=== PATIENT | female | born 1940 | race Two or more races ===

== ENCOUNTER 2020-08-27 12:23 | Inpatient (IN) | payer MEDICARE, OTHER ==
[~2020-08-27] VITALS: Ht 162.6 cm; Wt 75.9 kg
[2020-08-27 18:07] LABS: Basophils # (auto) 0 10 ^3/uL (0-0.2); Basophils % (auto) 0.4 % (0.0-2.0); Eosinophils # (auto) 0.1 10 ^3/uL (0-0.8); Eosinophils % (auto) 0.6 % (0.0-7.0); Hematocrit 42.1 % (36.0-46.0); Hemoglobin 14.6 g/dL (12.2-16.2); Lymphocytes # (auto) 1.5 10 ^3/uL (0.4-5.4); Lymphocytes % (auto) 14.9 % (10.0-50.0); Mean Corpuscular Hemoglobin 32.6 pg (28.0-32.0); Mean Corpuscular Hgb Conc. 34.7 g/dL (32.0-36.0); Mean Corpuscular Volume 93.9 fL (80.0-100.0); Monocytes # (auto) 1.5 10 ^3/uL (0-1.3); Monocytes % (auto) 14.5 % (0.0-12.0); Neutrophils % (auto) 69.6 % (37.0-80.0); Nucleated Red Blood Cells % 0.1 %; Red Blood Cells 4.48 10^6/uL (4.0-5.20); Red Cell Distribution Width 14.3 % (11.8-14.3)
[2020-08-27 18:23] LABS: INR 1.04 (0.9-1.15); Partial Thromboplastin Time 28.4 sec (23.0-31.2)
[2020-08-27 18:25] LABS: Albumin 3.4 g/dL (3.4-5.0); Anion Gap 9 (5-15); Blood Urea Nitrogen 14 mg/dL (7-18); Calcium 8.9 mg/dL (8.5-10.1); Carbon Dioxide 22 mmol/L (21-32); Chloride 101 mmol/L (98-107); Glucose 98 mg/dL (74-106); Lipase 46 U/L (73-393); Magnesium 1.8 mg/dL (1.6-2.6); Potassium 4.2 mmol/L (3.5-5.1); Sodium 132 mmol/L (136-145)
[2020-08-27 18:31] LABS: Alanine Aminotransferase 22 U/L (13-56); Alkaline Phosphatase 76 U/L (45-117); Aspartate Aminotransferase 22 U/L (15-37); BUN/Creatinine Ratio 18.9; Bilirubin, Total 1.1 mg/dL (0.2-1.0); GFR African American 97 mL/min; GFR Non-African American 80 mL/min
[2020-08-27] MEDS ORDERED: HYDROcodone-ACET 10/325MG TAB PO ONE (21:15)
[2020-08-27] MEDS ORDERED: ACETAMINOPHEN 325 MG TAB PO PRN (22:45)
[2020-08-27] MEDS ORDERED: ONDANSETRON HCL 4 MG/2 ML VIAL IV PRN (22:45)
[2020-08-27] MEDS ORDERED: NITROGLYCERIN 0.4 MG SL TAB SL PRN (22:45)
[2020-08-27] MEDS ORDERED: DOCUSATE SOD 100 MG CAP PO PRN (22:45)
[2020-08-27] MEDS ORDERED: MORPHINE SULFATE INJECTION 2 MG/ML SYRG IV PRN (22:45)
[2020-08-27 23:47] LABS: Urine Bacteria FEW /hpf (None Seen); Urine Blood Negative /uL (Negative); Urine Mucus FEW (None Seen); Urine Specific Gravity 1.016 (1.001-1.035); Urine WBC 1 /hpf (0 - 5)
[2020-08-28] VITALS (7 sets, daily range): BP systolic 112–139; BP diastolic 60–73
[2020-08-28 06:20] LABS: Basophils # (auto) 0 10 ^3/uL (0-0.2); Basophils % (auto) 0.4 % (0.0-2.0); Eosinophils # (auto) 0.1 10 ^3/uL (0-0.8); Eosinophils % (auto) 1.5 % (0.0-7.0); Hemoglobin 12.9 g/dL (12.2-16.2); Mean Corpuscular Hemoglobin 32.3 pg (28.0-32.0); Mean Corpuscular Hgb Conc. 34.7 g/dL (32.0-36.0); Neutrophils % (auto) 63.3 % (37.0-80.0); Red Blood Cells 3.98 10^6/uL (4.0-5.20); White Blood Cell 9.5 10^3/uL (4.4-10.8)
[2020-08-28 06:35] LABS: Albumin 2.9 g/dL (3.4-5.0); Potassium 3.7 mmol/L (3.5-5.1)
[2020-08-28] MEDS: SODIUM CHLORIDE 0.9% 1,000 ML IV SCH ×3 (06:38→17:44)
[2020-08-28 06:51] LABS: BUN/Creatinine Ratio 22.1; Bilirubin, Total 0.9 mg/dL (0.2-1.0); Calcium 8.6 mg/dL (8.5-10.1); Total Protein 6.2 g/dL (6.4-8.2)
[2020-08-28 07:05] LABS: Lymphocytes # (auto) 1.7 10 ^3/uL (0.4-5.4); Lymphocytes % (auto) 18.5 % (10.0-50.0); Monocytes # (auto) 1.6 10 ^3/uL (0-1.3); Monocytes % (auto) 16.3 % (0.0-12.0)
[2020-08-28] MEDS: ENOXAPARIN SOD 40 MG/0.4 ML SYRINGE SC SCH (10:04)
[2020-08-28] MEDS: ASCORBIC ACID 500 MG TAB PO SCH ×2 (10:04→22:04)
[2020-08-28] MEDS: FAMOTIDINE 20 MG TAB PO SCH ×2 (10:04→22:04)
[2020-08-28] MEDS: HYDROcodone-ACET 5/325MG TAB PO PRN ×2 (10:05→18:54)
[2020-08-28] MEDS: ZINC SULFATE 220mg CAP or TAB PO SCH (10:05)
[2020-08-28] MEDS: MULTIPLE VITAMIN TAB PO SCH (10:06)
[2020-08-28] MEDS: MORPHINE SULFATE 4 MG/ML SYR/VIAL IV PRN (23:44)
[2020-08-29] MEDS: MORPHINE SULFATE 4 MG/ML SYR/VIAL IV PRN ×2 (04:10→10:08)
[2020-08-29 05:00] VITALS: BP 118/73
[2020-08-29] MEDS ORDERED: HYDR-4902 PO (05:14)
[2020-08-29 05:39] LABS: Basophils # (auto) 0 10 ^3/uL (0-0.2); Basophils % (auto) 0.5 % (0.0-2.0); Eosinophils # (auto) 0.2 10 ^3/uL (0-0.8); Eosinophils % (auto) 2.3 % (0.0-7.0); Hematocrit 33.9 % (36.0-46.0); Hemoglobin 11.7 g/dL (12.2-16.2); Lymphocytes # (auto) 1.6 10 ^3/uL (0.4-5.4); Lymphocytes % (auto) 19.5 % (10.0-50.0); Mean Corpuscular Hemoglobin 32.6 pg (28.0-32.0); Mean Corpuscular Hgb Conc. 34.7 g/dL (32.0-36.0); Mean Corpuscular Volume 94.1 fL (80.0-100.0); Monocytes # (auto) 1.3 10 ^3/uL (0-1.3); Monocytes % (auto) 15.9 % (0.0-12.0); Neutrophils # (auto) 5.1 10 ^3/uL (1.6-8.6); Neutrophils % (auto) 61.8 % (37.0-80.0); Red Cell Distribution Width 13.8 % (11.8-14.3); White Blood Cell 8.3 10^3/uL (4.4-10.8)
[2020-08-29] MEDS: SODIUM CHLORIDE 0.9% 1,000 ML IV SCH (05:46)
[2020-08-29 06:09] LABS: Potassium 3.7 mmol/L (3.5-5.1)
[2020-08-29 06:55] LABS: BUN/Creatinine Ratio 28.8; Calcium 8.1 mg/dL (8.5-10.1); Magnesium 1.9 mg/dL (1.6-2.6)
[2020-08-29 09:00] VITALS: BP 136/59
[2020-08-29] MEDS: ASCORBIC ACID 500 MG TAB PO SCH ×2 (10:00→21:22)
[2020-08-29] MEDS: ENOXAPARIN SOD 40 MG/0.4 ML SYRINGE SC SCH (10:00)
[2020-08-29] MEDS: FAMOTIDINE 20 MG TAB PO SCH ×2 (10:00→21:22)
[2020-08-29] MEDS: ZINC SULFATE 220mg CAP or TAB PO SCH (10:00)
[2020-08-29] MEDS: MULTIPLE VITAMIN TAB PO SCH (10:00)
[2020-08-29 12:55] VITALS: BP 157/69
[2020-08-29 17:16] VITALS: BP 130/70
[2020-08-29] MEDS ORDERED: ALBUTEROL SULF 2.5 MG/0.5ML(0.5%) NEB SOLN NEB PRN (19:00)
[2020-08-29] MEDS ORDERED: IPRATROPIUM BROM 0.5 MG/2.5ML INH SOL NEB PRN (19:00)
[2020-08-29] MEDS: ALBUTEROL SULF 2.5 MG/0.5ML(0.5%) NEB SOLN NEB SCH ×2 (19:26→22:18)
[2020-08-29] MEDS: IPRATROPIUM BROM 0.5 MG/2.5ML INH SOL NEB SCH ×2 (19:26→22:18)
[2020-08-29 19:34] VITALS: BP 130/70
[2020-08-29] MEDS: HYDROcodone-ACET 5/325MG TAB PO PRN (21:23)
[2020-08-29] MEDS: GABAPENTIN 300 MG CAP PO SCH (21:54)
[2020-08-29 22:00] VITALS: BP 142/57
[2020-08-29 22:23] LABS: Folate (Folic Acid) > 24.00 ng/mL (5.38-24)
[2020-08-30] MEDS: SODIUM CHLORIDE 0.9% 1,000 ML IV SCH (04:34)
[2020-08-30 05:16] VITALS: BP 115/61
[2020-08-30] MEDS: IPRATROPIUM BROM 0.5 MG/2.5ML INH SOL NEB SCH ×6 (07:11→23:10)
[2020-08-30] MEDS: ALBUTEROL SULF 2.5 MG/0.5ML(0.5%) NEB SOLN NEB SCH ×6 (07:12→23:10)
[2020-08-30 09:00] VITALS: BP 123/64
[2020-08-30] MEDS: MULTIPLE VITAMIN TAB PO SCH (09:10)
[2020-08-30] MEDS: GABAPENTIN 300 MG CAP PO SCH ×2 (09:10→21:39)
[2020-08-30] MEDS: FAMOTIDINE 20 MG TAB PO SCH (09:10)
[2020-08-30] MEDS: ZINC SULFATE 220mg CAP or TAB PO SCH (09:10)
[2020-08-30] MEDS: ASCORBIC ACID 500 MG TAB PO SCH ×2 (09:10→21:39)
[2020-08-30] MEDS: ENOXAPARIN SOD 40 MG/0.4 ML SYRINGE SC SCH (09:11)
[2020-08-30] MEDS: MORPHINE SULFATE 4 MG/ML SYR/VIAL IV PRN (09:27)
[2020-08-30 09:38] LABS: Basophils # (auto) 0 10 ^3/uL (0-0.2); Basophils % (auto) 0.4 % (0.0-2.0); Eosinophils # (auto) 0.1 10 ^3/uL (0-0.8); Eosinophils % (auto) 1.2 % (0.0-7.0); Hemoglobin 11.1 g/dL (12.2-16.2); Lymphocytes # (auto) 1.1 10 ^3/uL (0.4-5.4); Lymphocytes % (auto) 14.7 % (10.0-50.0); Mean Corpuscular Hemoglobin 32.6 pg (28.0-32.0); Mean Corpuscular Hgb Conc. 34.8 g/dL (32.0-36.0); Mean Corpuscular Volume 93.6 fL (80.0-100.0); Monocytes # (auto) 1.3 10 ^3/uL (0-1.3); Monocytes % (auto) 16.9 % (0.0-12.0); Neutrophils % (auto) 66.8 % (37.0-80.0); Red Blood Cells 3.42 10^6/uL (4.0-5.20); Red Cell Distribution Width 13.6 % (11.8-14.3); White Blood Cell 7.5 10^3/uL (4.4-10.8)
[2020-08-30 09:57] LABS: BUN/Creatinine Ratio 31.3; Calcium 8.3 mg/dL (8.5-10.1); Magnesium 1.9 mg/dL (1.6-2.6); Potassium 4.2 mmol/L (3.5-5.1)
[2020-08-30] MEDS ORDERED: ceFAZolin 1GM/50ML 100 ML IV ONE (12:44)
[2020-08-30 13:00] VITALS: BP 129/65
[2020-08-30] MEDS ORDERED: ROPIVACAINE 0.5% (5MG/ML) 20ML AMPULE IJ ONE (13:35)
[2020-08-30] MEDS ORDERED: FAMOTIDINE (10MG/ML) 2ML VL IV ONE (13:35)
[2020-08-30] MEDS ORDERED: VANCOMYCIN HCL 1000 MG VL ONE (13:36)
[2020-08-30] MEDS ORDERED: HYDROmorphone HCL 2 MG/ML VL ONE (13:37)
[2020-08-30] MEDS ORDERED: ONDANSETRON HCL 4 MG/2 ML VIAL ONE (13:37)
[2020-08-30] MEDS ORDERED: PROPOFOL 10 MG/ML 20 ML IV ONE (13:37)
[2020-08-30] MEDS ORDERED: GLYCOPYRROLATE 0.2 MG/ML 1ML VIAL ONE (13:37)
[2020-08-30] MEDS ORDERED: MIDAZOLAM HCL 2MG/2ML 2ml VIAL (1mg/ml) ONE (13:37)
[2020-08-30] MEDS ORDERED: fentaNYL CITRATE 100 MCG/2 ML VL ONE (13:37)
[2020-08-30] MEDS ORDERED: DexAMETHasone SOD PHOS 10MG/1ML VIAL INJ ONE (13:37)
[2020-08-30] MEDS ORDERED: LIDOCAINE 2% (LOCAL ANESTH.) PF 5ml SDV ONE (13:37)
[2020-08-30] MEDS ORDERED: BACITRACIN INJ 50000 UNIT VIAL ONE (13:38)
[2020-08-30] MEDS ORDERED: BUPIVACAINE HCL 50 ML ONE (13:38)
[2020-08-30] MEDS ORDERED: TRANEXAMIC ACID 20 ML ONE (13:43)
[2020-08-30] MEDS ORDERED: NALOXONE HCL 0.4 MG/ML VIAL ONE (16:25)
[2020-08-30] MEDS ORDERED: HYDROmorphone HCL 2 MG/ML VL IV PRN (17:00)
[2020-08-30] MEDS ORDERED: ALBUTEROL SULF 2.5 MG/0.5ML(0.5%) NEB SOLN NEB ONE (17:00)
[2020-08-30] MEDS ORDERED: ONDANSETRON HCL 4 MG/2 ML VIAL IV PRN (17:00)
[2020-08-30] MEDS ORDERED: IPRATROPIUM BROM 0.5 MG/2.5ML INH SOL NEB ONE (17:00)
[2020-08-30] MEDS: LACTATED RINGER'S 1,000 ML IV SCH (21:38)
[2020-08-30] MEDS: ceFAZolin 1GM/50ML 50 ML IV SCH (21:39)
[2020-08-30 22:54] VITALS: BP 106/64
[2020-08-30] MEDS: HYDROcodone-ACET 5/325MG TAB PO PRN (23:38)
[2020-08-31] MEDS: MORPHINE SULFATE 4 MG/ML SYR/VIAL IV PRN ×4 (01:47→19:13)
[2020-08-31] MEDS: LACTATED RINGER'S 1,000 ML IV SCH ×3 (02:45→22:45)
[2020-08-31] MEDS: ceFAZolin 1GM/50ML 50 ML IV SCH (05:21)
[2020-08-31 05:25] VITALS: BP 106/62
[2020-08-31] MEDS: IPRATROPIUM BROM 0.5 MG/2.5ML INH SOL NEB SCH ×5 (06:06→22:40)
[2020-08-31] MEDS: ALBUTEROL SULF 2.5 MG/0.5ML(0.5%) NEB SOLN NEB SCH ×5 (06:06→22:40)
[2020-08-31 06:21] LABS: Basophils # (auto) 0 10 ^3/uL (0-0.2); Basophils % (auto) 0.2 % (0.0-2.0); Eosinophils # (auto) 0 10 ^3/uL (0-0.8); Hematocrit 32.4 % (36.0-46.0); Hemoglobin 11.3 g/dL (12.2-16.2); Lymphocytes # (auto) 0.7 10 ^3/uL (0.4-5.4); Lymphocytes % (auto) 6.4 % (10.0-50.0); Mean Corpuscular Hemoglobin 32.7 pg (28.0-32.0); Mean Corpuscular Hgb Conc. 34.8 g/dL (32.0-36.0); Monocytes # (auto) 1.1 10 ^3/uL (0-1.3); Monocytes % (auto) 9.9 % (0.0-12.0); Neutrophils % (auto) 83.5 % (37.0-80.0); Red Blood Cells 3.44 10^6/uL (4.0-5.20); Red Cell Distribution Width 13.6 % (11.8-14.3); White Blood Cell 10.8 10^3/uL (4.4-10.8)
[2020-08-31 06:43] LABS: Calcium 8.1 mg/dL (8.5-10.1); Potassium 4.5 mmol/L (3.5-5.1)
[2020-08-31 06:45] LABS: Magnesium 1.8 mg/dL (1.6-2.6)
[2020-08-31 09:00] VITALS: BP 100/54
[2020-08-31] MEDS: ZINC SULFATE 220mg CAP or TAB PO SCH (09:30)
[2020-08-31] MEDS: MULTIPLE VITAMIN TAB PO SCH (09:30)
[2020-08-31] MEDS: ASCORBIC ACID 500 MG TAB PO SCH ×2 (09:30→21:46)
[2020-08-31] MEDS: GABAPENTIN 300 MG CAP PO SCH ×2 (09:30→21:45)
[2020-08-31] MEDS: FAMOTIDINE 20 MG TAB PO SCH (09:31)
[2020-08-31] MEDS: ENOXAPARIN SOD 40 MG/0.4 ML SYRINGE SC SCH (09:31)
[2020-08-31 13:00] VITALS: BP 97/54
[2020-08-31 17:00] VITALS: BP 98/57
[2020-08-31 20:00] VITALS: BP 105/96
[2020-08-31 22:00] VITALS: BP 105/96
[2020-09-01 05:00] VITALS: BP 129/62
[2020-09-01] MEDS: MORPHINE SULFATE 4 MG/ML SYR/VIAL IV PRN ×3 (05:20→17:29)
[2020-09-01 05:56] LABS: Hemoglobin 10.6 g/dL (12.2-16.2)
[2020-09-01] MEDS: ALBUTEROL SULF 2.5 MG/0.5ML(0.5%) NEB SOLN NEB SCH ×5 (05:59→22:31)
[2020-09-01] MEDS: IPRATROPIUM BROM 0.5 MG/2.5ML INH SOL NEB SCH ×5 (05:59→22:31)
[2020-09-01] MEDS: LACTATED RINGER'S 1,000 ML IV SCH ×2 (08:45→18:45)
[2020-09-01 09:00] VITALS: BP 115/50
[2020-09-01] MEDS: GABAPENTIN 300 MG CAP PO SCH ×2 (12:04→21:50)
[2020-09-01] MEDS: ZINC SULFATE 220mg CAP or TAB PO SCH (12:04)
[2020-09-01] MEDS: MULTIPLE VITAMIN TAB PO SCH (12:04)
[2020-09-01] MEDS: FAMOTIDINE 20 MG TAB PO SCH (12:05)
[2020-09-01] MEDS: ASCORBIC ACID 500 MG TAB PO SCH ×2 (12:05→21:50)
[2020-09-01] MEDS: ENOXAPARIN SOD 40 MG/0.4 ML SYRINGE SC SCH (12:05)
[2020-09-01 13:00] VITALS: BP 101/53
[2020-09-01 14:30] VITALS: BP 115/50
[2020-09-01 17:00] VITALS: BP 125/68
[2020-09-01] MEDS: HYDROcodone-ACET 5/325MG TAB PO PRN (20:16)
[2020-09-01 22:00] VITALS: BP 118/45
[2020-09-02] MEDS: IPRATROPIUM BROM 0.5 MG/2.5ML INH SOL NEB SCH ×5 (02:17→18:00)
[2020-09-02] MEDS: LACTATED RINGER'S 1,000 ML IV SCH ×2 (04:45→14:45)
[2020-09-02 05:00] VITALS: BP 110/51
[2020-09-02 05:45] LABS: Hematocrit 32.9 % (36.0-46.0); Hemoglobin 11.1 g/dL (12.2-16.2)
[2020-09-02] MEDS: ALBUTEROL SULF 2.5 MG/0.5ML(0.5%) NEB SOLN NEB SCH ×4 (06:00→18:00)
[2020-09-02] MEDS: MORPHINE SULFATE 4 MG/ML SYR/VIAL IV PRN (08:27)
[2020-09-02 09:00] VITALS: BP_SYST 122; BP_SYST 124; BP_DIAS 57; BP_DIAS 60
[2020-09-02] MEDS: MULTIPLE VITAMIN TAB PO SCH (09:56)
[2020-09-02] MEDS: ZINC SULFATE 220mg CAP or TAB PO SCH (09:56)
[2020-09-02] MEDS: GABAPENTIN 300 MG CAP PO SCH (09:57)
[2020-09-02] MEDS: FAMOTIDINE 20 MG TAB PO SCH (09:57)
[2020-09-02] MEDS: ASCORBIC ACID 500 MG TAB PO SCH (09:57)
[2020-09-02] MEDS: ENOXAPARIN SOD 40 MG/0.4 ML SYRINGE SC SCH (09:57)
[2020-09-02 13:00] VITALS: BP 113/68
[2020-09-02] MEDS: HYDROcodone-ACET 5/325MG TAB PO PRN (15:36)
[2020-09-02 16:55] VITALS: BP 155/72
[2020-09-02 17:00] VITALS: BP 120/60
== END 2020-09-02 20:00 | DRG 483 ==
LOC: ER 12:23 → EDBD 12:23 → TELE 22:38 → TELE-WESTW 23:22
PROVIDERS: ADMIT Nurse Practitioner Family; ATTEND Internal Medicine
PROC: 0RRJ00Z Replacement of Right Shoulder Joint with Reverse Ball and Socket Synthetic Substitute, Open Approach (ICD-10-PCS; principal; 2020-08-30 13:44)
DX: S42.211A Unspecified displaced fracture of surgical neck of right humerus, initial encounter for closed fracture (principal); E87.1 Hypo-osmolality and hyponatremia; W01.0XXA Fall on same level from slipping, tripping and stumbling without subsequent striking against object, initial encounter; J44.9 Chronic obstructive pulmonary disease, unspecified; I10 Essential (primary) hypertension; E78.5 Hyperlipidemia, unspecified; G62.9 Polyneuropathy, unspecified; Z20.822 Contact with and (suspected) exposure to COVID-19; G89.29 Other chronic pain; E88.09 Other disorders of plasma-protein metabolism, not elsewhere classified; F10.10 Alcohol abuse, uncomplicated; F17.210 Nicotine dependence, cigarettes, uncomplicated; M51.17 Intervertebral disc disorders with radiculopathy, lumbosacral region; Z53.20 Procedure and treatment not carried out because of patient's decision for unspecified reasons; Z79.899 Other long term (current) drug therapy; Z71.6 Tobacco abuse counseling; Y93.89 Activity, other specified; Y92.098 Other place in other non-institutional residence as the place of occurrence of the external cause; Y99.8 Other external cause status
CPT/HCPCS: 36415; 71045; 72131; 73020; 73030; 73060; 73700; 76000; 80048; 80053; 81001; 82607; 82746; 83036; 83690; 83735; 84155; 84165; 84443; 84484; 85014; 85018; 85025; 85610; 85730; 86850; 86900; 86901; 87426; 93005; 93306; 94640; 96360; 96372; 97163; A4565; G0378; J0690; J1100; J2001; J2250; J2405; J2704; J3490

== ENCOUNTER 2022-02-18 21:14 | Inpatient (IN) | payer OTHER ==
[~2022-02-18] VITALS: Ht 162.6 cm; Wt 59.0 kg
[~2022-02-18 21:14] MED LIST: HYDR-4902 PO
[2022-02-18 21:55] LABS: Basophils # (auto) 0.1 10 ^3/uL (0-0.2); Basophils % (auto) 0.8 % (0.0-2.0); Eosinophils # (auto) 0.9 10 ^3/uL (0-0.8); Eosinophils % (auto) 13.2 % (0.0-7.0); Hematocrit 41.6 % (36.0-46.0); Hemoglobin 13.8 g/dL (12.2-16.2); Lymphocytes # (auto) 2.4 10 ^3/uL (0.4-5.4); Lymphocytes % (auto) 34.9 % (10.0-50.0); Mean Corpuscular Hemoglobin 31.3 pg (28.0-32.0); Mean Corpuscular Hgb Conc. 33.2 g/dL (32.0-36.0); Mean Corpuscular Volume 94.3 fL (80.0-100.0); Monocytes # (auto) 0.7 10 ^3/uL (0-1.3); Monocytes % (auto) 10.5 % (0.0-12.0); Neutrophils # (auto) 2.7 10 ^3/uL (1.6-8.6); Neutrophils % (auto) 40.6 % (37.0-80.0); Nucleated Red Blood Cells % 0.1 %; Red Blood Cells 4.41 10^6/uL (4.0-5.20); Red Cell Distribution Width 13.8 % (11.8-14.3); White Blood Cell 6.8 10^3/uL (4.4-10.8)
[2022-02-18 22:08] LABS: INR 1.07 (0.9-1.15)
[2022-02-18 22:14] LABS: Calcium 9.2 mg/dL (8.5-10.1); Magnesium 1.9 mg/dL (1.6-2.6); Potassium 3.8 mmol/L (3.5-5.1)
[2022-02-18 22:18] LABS: BUN/Creatinine Ratio 19.1; Bilirubin, Total 0.3 mg/dL (0.2-1.0); Total Protein 6.4 g/dL (6.4-8.2)
[2022-02-18] MEDS ORDERED: ALBUTEROL MEDNEB 2.5 mg/3ml NEB ONE (22:41)
[2022-02-18] MEDS ORDERED: DexAMETHasone SOD PHOS 10MG/1ML VIAL INJ IV ONE (22:45)
[2022-02-18] MEDS ORDERED: AZITHROMYCIN 500MG/ 250ML 250 ML IV ONE (22:45)
[2022-02-18] MEDS ORDERED: ALBUTEROL SULF 2.5 MG/0.5ML(0.5%) NEB SOLN NEB ONE (22:45)
[2022-02-19 02:37] LABS: Urine Blood Negative /uL (Negative); Urine WBC 1 /hpf (0 - 5)
[2022-02-19] MEDS: methylPREDNISolone SOD SUCC 125 MG/2 ML VL IV SCH ×2 (10:00→21:28)
[2022-02-19] MEDS: ENOXAPARIN SOD 40 MG/0.4 ML SYRINGE SC SCH (10:00)
[2022-02-19] MEDS ORDERED: IPRATROPIUM BROM 0.5 MG/2.5ML INH SOL NEB PRN (10:00)
[2022-02-19] MEDS ORDERED: HYDROcodone-ACET 5/325MG TAB PO PRN (10:00)
[2022-02-19] MEDS: NICOTINE 7MG/24HR TOPICAL PATCH TD SCH (10:00)
[2022-02-19] MEDS ORDERED: NITROGLYCERIN 0.4 MG SL TAB SL PRN (10:00)
[2022-02-19] MEDS ORDERED: ALBUTEROL SULF 2.5 MG/0.5ML(0.5%) NEB SOLN NEB PRN (10:00)
[2022-02-19] MEDS ORDERED: ACETAMINOPHEN 325 MG TAB PO PRN (10:00)
[2022-02-19] MEDS ORDERED: MORPHINE SULFATE INJ 2 MG/ml SYRG IV PRN ×2 (10:00)
[2022-02-19 10:14] LABS: Basophils # (auto) 0 10 ^3/uL (0-0.2); Basophils % (auto) 0.4 % (0.0-2.0); Eosinophils # (auto) 0 10 ^3/uL (0-0.8); Eosinophils % (auto) 0.1 % (0.0-7.0); Hemoglobin 13.1 g/dL (12.2-16.2); Lymphocytes # (auto) 0.7 10 ^3/uL (0.4-5.4); Lymphocytes % (auto) 27.8 % (10.0-50.0); Mean Corpuscular Hemoglobin 30.8 pg (28.0-32.0); Mean Corpuscular Hgb Conc. 32.8 g/dL (32.0-36.0); Mean Corpuscular Volume 93.9 fL (80.0-100.0); Monocytes # (auto) 0.1 10 ^3/uL (0-1.3); Monocytes % (auto) 4.6 % (0.0-12.0); Neutrophils # (auto) 1.8 10 ^3/uL (1.6-8.6); Neutrophils % (auto) 67.1 % (37.0-80.0); Nucleated Red Blood Cells % 0.1 %; Red Blood Cells 4.26 10^6/uL (4.0-5.20); Red Cell Distribution Width 13.7 % (11.8-14.3); White Blood Cell 2.7 10^3/uL (4.4-10.8)
[2022-02-19 10:33] LABS: BUN/Creatinine Ratio 16.3; Potassium 4.1 mmol/L (3.5-5.1)
[2022-02-19] MEDS ORDERED: IOHEXOL 350 MG/ML 100ML IJ ONE ×2 (11:23→22:46)
[2022-02-19 11:28] LABS: Cholesterol 151 mg/dL (< 200)
[2022-02-19] MEDS ORDERED: MAGNESIUM SULFATE 1GM/100ML 100 ML IV ONE (11:30)
[2022-02-19 11:31] LABS: HDL Cholesterol 49 mg/dL (40-59); LDL Cholesterol 92 mg/dL (< 100); Triglycerides 42 mg/dL (< 150)
[2022-02-19] MEDS: SODIUM CHLORIDE 0.9% 1,000 ML IV SCH ×2 (11:39→23:37)
[2022-02-19] MEDS: ALBUTEROL SULF 2.5 MG/0.5ML(0.5%) NEB SOLN NEB SCH ×2 (12:00→18:20)
[2022-02-19] MEDS: IPRATROPIUM BROM 0.5 MG/2.5ML INH SOL NEB SCH ×2 (12:00→18:20)
[2022-02-19 13:37] VITALS: BP 136/65
[2022-02-19] MEDS ORDERED: ALBUTEROL MEDNEB 2.5 mg/3ml NEB ONE (18:18)
[2022-02-19 22:49] VITALS: BP 148/69
[2022-02-20 05:00] VITALS: BP 147/55
[2022-02-20] MEDS ORDERED: ALBUTEROL MEDNEB 2.5 mg/3ml NEB ONE (06:01)
[2022-02-20] MEDS: ALBUTEROL SULF 2.5 MG/0.5ML(0.5%) NEB SOLN NEB SCH ×2 (06:23→11:17)
[2022-02-20] MEDS: IPRATROPIUM BROM 0.5 MG/2.5ML INH SOL NEB SCH ×2 (06:23→11:17)
[2022-02-20 07:34] LABS: Calcium 8.9 mg/dL (8.5-10.1); Potassium 4.1 mmol/L (3.5-5.1)
[2022-02-20 08:06] LABS: Basophils # (auto) 0 10 ^3/uL (0-0.2); Basophils % (auto) 0.2 % (0.0-2.0); Eosinophils # (auto) 0 10 ^3/uL (0-0.8); Eosinophils % (auto) 0.5 % (0.0-7.0); Hematocrit 40.9 % (36.0-46.0); Hemoglobin 13.7 g/dL (12.2-16.2); Lymphocytes # (auto) 1.2 10 ^3/uL (0.4-5.4); Lymphocytes % (auto) 15.1 % (10.0-50.0); Mean Corpuscular Hemoglobin 31.3 pg (28.0-32.0); Mean Corpuscular Hgb Conc. 33.4 g/dL (32.0-36.0); Mean Corpuscular Volume 93.7 fL (80.0-100.0); Monocytes # (auto) 0.5 10 ^3/uL (0-1.3); Neutrophils % (auto) 78.2 % (37.0-80.0); Nucleated Red Blood Cells % 0.1 %; Red Blood Cells 4.36 10^6/uL (4.0-5.20); Red Cell Distribution Width 13.4 % (11.8-14.3); White Blood Cell 7.7 10^3/uL (4.4-10.8)
[2022-02-20 08:37] VITALS: BP 146/66
[2022-02-20] MEDS: methylPREDNISolone SOD SUCC 125 MG/2 ML VL IV SCH (09:19)
[2022-02-20] MEDS: ENOXAPARIN SOD 40 MG/0.4 ML SYRINGE SC SCH (09:19)
[2022-02-20] MEDS: NICOTINE 7MG/24HR TOPICAL PATCH TD SCH (09:19)
[2022-02-20] MEDS ORDERED: METOPROLOL SUCCINATE XL 50 MG TAB PO SCH (10:00)
[2022-02-20 12:45] VITALS: BP 109/47
[2022-02-20] MEDS: SODIUM CHLORIDE 0.9% 1,000 ML IV SCH (14:10)
[2022-02-20] MEDS ORDERED: FLUT1AER3 INH (14:29)
[2022-02-20] MEDS ORDERED: GABA300C10 PO (14:29)
[2022-02-20] MEDS ORDERED: ALBU108A5 INH (14:29)
[2022-02-20] MEDS ORDERED: DOXY-338 PO (14:30)
[2022-02-20] MEDS ORDERED: PRED20TA2 PO (14:46)
[2022-02-20 16:17] VITALS: BP 109/47
[2022-02-20 17:00] VITALS: BP 132/73
== END 2022-02-20 18:22 | disposition home or self-care (01) | DRG 189 ==
LOC: EDBD 21:14 → ER 21:17 → OVERFLOW 02-19 09:59 → WEST WING 02-19 21:43
PROVIDERS: ADMIT Registered Nurse; ATTEND Internal Medicine
DX: J96.21 Acute and chronic respiratory failure with hypoxia (principal); J44.1 Chronic obstructive pulmonary disease with (acute) exacerbation; E04.2 Nontoxic multinodular goiter; I10 Essential (primary) hypertension; Z20.822 Contact with and (suspected) exposure to COVID-19; I27.20 Pulmonary hypertension, unspecified; Z99.81 Dependence on supplemental oxygen; Z90.49 Acquired absence of other specified parts of digestive tract; Z72.0 Tobacco use; Z71.6 Tobacco abuse counseling
CPT/HCPCS: 36415; 36600; 71045; 71275; 80048; 80053; 80061; 81001; 82805; 83036; 83690; 83735; 83880; 84443; 84484; 85025; 85610; 85730; 87426; 87804; 93005; 93306; 94640; 96365; 96372; 96375; G0378; J1100

== ENCOUNTER 2022-10-22 16:47 | Inpatient (IN) | payer OTHER ==
[~2022-10-22] VITALS: Ht 165.1 cm; Wt 64.6 kg
[~2022-10-22 16:47] MED LIST changes: +ALBU108A5 INH; +DOXY-447 PO; +FLUT1AER3 INH; +GABA-1250 PO; +PRED20TA2 PO
[2022-10-22] MEDS ORDERED: ALBUTEROL SULF 2.5 MG/0.5ML(0.5%) NEB SOLN HHN ONE (17:30)
[2022-10-22] MEDS ORDERED: DexAMETHasone SOD PHOS 10MG/1ML VIAL INJ IV ONE (17:30)
[2022-10-22] MEDS ORDERED: IPRATROPIUM BROM 0.5 MG/2.5ML INH SOL HHN ONE (17:30)
[2022-10-22 17:46] LABS: Basophils # (auto) 0.1 10 ^3/uL (0-0.2); Basophils % (auto) 1.3 % (0.0-2.0); Hematocrit 41.3 % (36.0-46.0); Hemoglobin 13.9 g/dL (12.2-16.2); Lymphocytes # (auto) 2.7 10 ^3/uL (0.4-5.4); Lymphocytes % (auto) 32.5 % (10.0-50.0); Mean Corpuscular Hemoglobin 31.4 pg (28.0-32.0); Mean Corpuscular Hgb Conc. 33.6 g/dL (32.0-36.0); Mean Corpuscular Volume 93.5 fL (80.0-100.0); Monocytes # (auto) 0.9 10 ^3/uL (0-1.3); Monocytes % (auto) 11.4 % (0.0-12.0); Neutrophils # (auto) 3.5 10 ^3/uL (1.6-8.6); Neutrophils % (auto) 42.8 % (37.0-80.0); Nucleated Red Blood Cells % 0.1 %; Red Blood Cells 4.42 10^6/uL (4.0-5.20); Red Cell Distribution Width 13.9 % (11.8-14.3); White Blood Cell 8.2 10^3/uL (4.4-10.8)
[2022-10-22 17:54] LABS: Albumin 3.9 g/dL (3.4-5.0); Calcium 9.3 mg/dL (8.5-10.1); Potassium 4.1 mmol/L (3.5-5.1)
[2022-10-22 17:57] LABS: BUN/Creatinine Ratio 22.2 (10.0-20.0); Bilirubin, Total 0.3 mg/dL (0.2-1.0); Total Protein 6.5 g/dL (6.4-8.2)
[2022-10-22] MEDS ORDERED: FUROSEMIDE 40 MG/4 ML VIAL IV ONE (20:30)
[2022-10-22 22:35] LABS: Base Excess -0.5 mmol/L (-2.0-2.0)
[2022-10-22 23:15] VITALS: PULSE 94; RESP 13; O2SAT 97
[2022-10-22] MEDS ORDERED: HYDROcodone-ACET 5/325MG TAB PO PRN (23:45)
[2022-10-22] MEDS ORDERED: ACETAMINOPHEN 325 MG TAB PO PRN (23:45)
[2022-10-22] MEDS ORDERED: DOCUSATE SOD 100 MG CAP PO PRN (23:45)
[2022-10-22] MEDS ORDERED: MORPHINE SULFATE INJ 2 MG/ml SYRG IV PRN (23:45)
[2022-10-22] MEDS ORDERED: NITROGLYCERIN 0.4 MG SL TAB SL PRN (23:45)
[2022-10-22] MEDS ORDERED: ONDANSETRON HCL 4 MG/2 ML VIAL IV PRN (23:45)
[2022-10-22 23:48] VITALS: PULSE 80; RESP 15; O2SAT 95
[2022-10-23] VITALS (10 sets, daily range): BP systolic 139–150; BP diastolic 67–78; PULSE 70–94; RESP 13–20; TEMP 97.8–98.4; O2SAT 95–100
[2022-10-23] MEDS: IPRATROPIUM BROM 0.5 MG/2.5ML INH SOL NEB SCH ×5 (00:31→23:59)
[2022-10-23] MEDS: ALBUTEROL SULF 2.5 MG/0.5ML(0.5%) NEB SOLN NEB SCH ×5 (00:32→23:59)
[2022-10-23 01:14] LABS: Basophils # (auto) 0 10 ^3/uL (0-0.2); Basophils % (auto) 0.2 % (0.0-2.0); Eosinophils # (auto) 0 10 ^3/uL (0-0.8); Eosinophils % (auto) 0.1 % (0.0-7.0); Hematocrit 41.1 % (36.0-46.0); Hemoglobin 13.9 g/dL (12.2-16.2); Lymphocytes # (auto) 0.5 10 ^3/uL (0.4-5.4); Lymphocytes % (auto) 10.1 % (10.0-50.0); Mean Corpuscular Hemoglobin 31.8 pg (28.0-32.0); Mean Corpuscular Hgb Conc. 33.7 g/dL (32.0-36.0); Mean Corpuscular Volume 94.2 fL (80.0-100.0); Monocytes # (auto) 0 10 ^3/uL (0-1.3); Neutrophils # (auto) 4.1 10 ^3/uL (1.6-8.6); Neutrophils % (auto) 88.6 % (37.0-80.0); Nucleated Red Blood Cells % 0.1 %; Red Blood Cells 4.36 10^6/uL (4.0-5.20); Red Cell Distribution Width 13.7 % (11.8-14.3); White Blood Cell 4.6 10^3/uL (4.4-10.8)
[2022-10-23 01:17] LABS: Urine Bacteria NONE SEEN /hpf (None Seen); Urine Blood Negative /uL (Negative); Urine Clarity Clear (Clear); Urine Color Colorless (Yellow); Urine Protein, UAD Negative (Negative); Urine Specific Gravity 1.007 (1.001-1.035); Urine Urobilinogen Normal (Negative); Urine WBC 1 /hpf (0 - 5); Urine pH 5.5 (5.0-8.0)
[2022-10-23 02:18] LABS: COVID19 ANTIGEN SOFIA FIA NEGATIVE (NEGATIVE)
[2022-10-23 06:24] LABS: Potassium 3.9 mmol/L (3.5-5.1)
[2022-10-23 06:35] LABS: BUN/Creatinine Ratio 23.3 (10.0-20.0); Calcium 9.1 mg/dL (8.5-10.1)
[2022-10-23] MEDS: methylPREDNISolone SOD SUCC 40 MG/ML VL IV SCH ×3 (06:41→21:35)
[2022-10-23] MEDS: DOXYCYCLINE 100 MG TAB/CAP PO SCH ×2 (10:26→21:35)
[2022-10-23] MEDS: ENOXAPARIN SOD 40 MG/0.4 ML SYRINGE SC SCH (10:26)
[2022-10-24] VITALS (8 sets, daily range): BP systolic 121–141; BP diastolic 60–74; PULSE 69–89; RESP 16–18; TEMP 97.8–98; O2SAT 93–99
[2022-10-24] MEDS: methylPREDNISolone SOD SUCC 40 MG/ML VL IV SCH ×2 (05:08→14:16)
[2022-10-24] MEDS: IPRATROPIUM BROM 0.5 MG/2.5ML INH SOL NEB SCH ×2 (06:42→12:11)
[2022-10-24] MEDS: ALBUTEROL SULF 2.5 MG/0.5ML(0.5%) NEB SOLN NEB SCH ×2 (06:42→12:11)
[2022-10-24 07:56] LABS: BUN/Creatinine Ratio 27.7 (10.0-20.0); Calcium 9.1 mg/dL (8.5-10.1)
[2022-10-24] MEDS: DOXYCYCLINE 100 MG TAB/CAP PO SCH (10:27)
[2022-10-24] MEDS: ENOXAPARIN SOD 40 MG/0.4 ML SYRINGE SC SCH (10:27)
[2022-10-24] MEDS ORDERED: METH4PAK PO (13:35)
[2022-10-24] MEDS ORDERED: IPR002IS NEB (13:35)
[2022-10-24] MEDS ORDERED: DOX100T PO (13:35)
== END 2022-10-24 16:43 | disposition home or self-care (01) | DRG 189 ==
LOC: EDBD 16:47 → ER 16:47 → TELE 23:52 → TELE-CENTR 10-23 18:01 → OBSVTOIN 10-24 13:44
PROVIDERS: ADMIT Internal Medicine; ATTEND Internal Medicine
DX: J96.21 Acute and chronic respiratory failure with hypoxia (principal); J44.0 Chronic obstructive pulmonary disease with (acute) lower respiratory infection; J44.1 Chronic obstructive pulmonary disease with (acute) exacerbation; I11.0 Hypertensive heart disease with heart failure; Z20.822 Contact with and (suspected) exposure to COVID-19; J20.9 Acute bronchitis, unspecified; Z90.49 Acquired absence of other specified parts of digestive tract; Z99.81 Dependence on supplemental oxygen; Z72.0 Tobacco use; I50.9 Heart failure, unspecified
CPT/HCPCS: 36415; 36600; 71045; 80048; 80053; 81001; 82805; 83605; 83735; 83880; 84484; 85025; 87040; 87426; 93005; 93306; 94640; 99291; G0378; J1100